=== PATIENT | male | born 2000 | race Caucasian/White ===

== ENCOUNTER 2020-04-01 00:08 | Emergency (ER) | payer OTHER ==
[2020-04-01 00:17] VITALS: BP 140/89
--- NOTE | 2020-04-01 00:17 | ED Physician Documentation ---
History of Present Illness - Stated complaint Stated Complaint: SOA - Chief complaint Chief Complaint: Resp - History obtained from History obtained from: Patient - Additonal information Additional information: The patient is a 20-year-old male who presents with a chief complaint of being concerned that he could possibly have COVID. He reports some stress and anxiety and occasional shortness of breath. He denies fevers, headache, neck pain or rash. Patient reports that he was recently and [place] and potentially could have been exposed to COVID.He denies rashes, Chest pain, syncope or any other concerns. Denies any history of LA or stroke or pulmonary embolism or DVT or pneumothorax.Patient reports she was otherwise healthy and up-to-date on all of his immunizations.Patient denies any lower extremity swelling denies any exogenous steroid use or estrogen use denies any recent periods of stasis or trauma or surgeries or any excessive periods of immobility. Denies any unilateral lower extremity swelling. Review of Systems Constitutional: reports: Reviewed and negative Eyes: reports: Reviewed and negative Ears: reports: Reviewed and negative Nose: reports: Reviewed and negative Throat: reports: Reviewed and negative Cardiac: reports: Reviewed and negative Respiratory: reports: Dyspnea GI: reports: Reviewed and negative : reports: Reviewed and negative Skin: reports: Reviewed and negative Musculoskeletal: reports: Reviewed and negative Neurologic: reports: Reviewed and negative Psychiatric: reports: Reviewed and negative Endocrine: reports: Reviewed and negative Immunocompromised: reports: Reviewed and negative PD PAST MEDICAL HISTORY - Allergies Allergies/Adverse Reactions: Allergies Allergy/AdvReac Type Severity Reaction Status Date / Time No Known Drug Allergies Allergy Verified 04/01/20 00:17 PD ED PE NORMAL - Vitals Vital signs reviewed: Yes - General General: Alert and oriented X 3, No acute distress, Well developed/nourished, Other (Healthy appearing, nontoxic nonseptic appearing 20-year-old male in no apparent distress.) - HEENT HEENT: Atraumatic, PERRL, EOMI, Ears normal, Moist mucous membranes, Pharynx benign, Dentition benign - Neck Neck: Supple, no meningeal sign, No bony TTP, No adenopathy, Thyroid normal, No JVD, No bruit - Cardiac Cardiac: RRR, No murmur, No gallop, No rub, Strong equal pulses - Respiratory Respiratory: No respiratory distress, Clear bilaterally - Abdomen Abdomen: Normal bowel sounds, Soft, Non tender, Non distended, No organomegaly - Male Male : Deferred - Rectal Rectal: Deferred - Back Back: No CVA TTP, No spinal TTP - Derm Derm: Normal color, Warm and dry, No rash - Extremities Extremities: No deformity, No tenderness to palpate, Normal ROM s pain, No edema, No calf tenderness / cord - Neuro Neuro: Alert and oriented X 3, coil winder strap 2-12 intact, No motor deficit, No sensory deficit, Normal speech - Psych Psych: Normal mood, Normal affect Results - Vitals Vitals: Vital Signs - 24 hr 04/01/20 00:14 Temperature 36.8 C Heart Rate 91 Respiratory 18 Rate Blood Pressure 140/89 H O2 Saturation 97 Oxygen O2 Source Room air PD MEDICAL DECISION MAKING - ED course Complexity details: d/w patient ED course: PERC 0. Patient is requesting covid testing. COVID test ordered, completed and sent, patient instructed to please follow up for COVID results. patient agreeable to plan. Departure - Departure Disposition: Home, Self Care Clinical Impression: Shortness of breath Condition: Stable Instructions: ED Dyspnea Shortness of Breath Follow-Up: ELIE Weaver [Provider Group] - Tomorrow Comments: Please call the hospital on Friday to follow up on your results of your COVID-19 test. return to the emergency department with any concerns.
== END 2020-04-01 00:31 | disposition home or self-care (01) ==
LOC: ED 00:08
DX: R06.02 Shortness of breath (principal); Z20.828 Contact with and (suspected) exposure to other viral communicable diseases
CPT/HCPCS: 99283

== ENCOUNTER 2020-04-13 10:58 | Emergency (ER) | payer OTHER ==
--- NOTE | 2020-04-13 11:14 | ED Physician Documentation ---
PD HPI URI - Stated complaint Stated Complaint: LAZARO/COLD SWEATS - Chief complaint Chief Complaint: General - History obtained from History obtained from: Patient - History of Present Illness Timing - onset: How many days ago (2-3) Timing duration: Days (2-3) Timing details: Gradual onset, Still present Associated symptoms: Fever (2 days ago), Chills, Nasal congestion, Dry cough (mild), Chest pain (tightness feeling), Dyspnea (with activity, feeling very dyspneic with just walking around.). No: Sinus pain, Sore throat, NVD, Bilateral edema Contributing factors: No: Sick contact, Travel, Immunocompromised, COPD / asthma Similar symptoms before: Has not had sx before Recently seen: Emergency Dept (seen 2 weeks ago for some malaise and cough and had negative COIVD test at that time. [place] okay in the interval time until the past few days.) Review of Systems Constitutional: reports: Fever (subjective, with measured mild fever 100 2 days ago.), Chills, Myalgias Nose: reports: Congestion. denies: Rhinorrhea / runny nose Throat: denies: Sore throat Cardiac: reports: Chest pain / pressure. denies: Palpitations (noted fast heart rate at times, particular with light activity, and has noted it up to 130 but regular.), Pedal edema, Calf pain Respiratory: reports: Dyspnea, Cough (mild nonproductive). denies: Wheezing GI: denies: Abdominal Pain, Nausea, Vomiting, Diarrhea Musculoskeletal: denies: Neck pain, Back pain Neurologic: reports: Generalized weakness. denies: Near syncope PD PAST MEDICAL HISTORY - Past Medical History Past Medical History: No Cardiovascular: None Respiratory: None Neuro: None Endocrine/Autoimmune: None - Past Surgical History Past Surgical History: No - Present Medications Home Medications: Ambulatory Orders Medication Instructions Recorded Confirmed Colchicine 0.6 mg PO BID #20 capsule 04/13/20 dexAMETHasone [Decadron] 4 mg PO DAILY #7 tablet 04/13/20 - Allergies Allergies/Adverse Reactions: Allergies Allergy/AdvReac Type Severity Reaction Status Date / Time No Known Drug Allergies Allergy Verified 04/13/20 11:07 - Living Situation Living Arrangement: reports: At home - Social History Does the pt smoke?: No Does the pt drink ETOH?: Yes Does the pt have substance abuse?: No Additional Social History: regular but not excess caffeine use - 1-2 coffees daily, and some soda. No energy drinks. - Immunizations Immunizations are current?: Yes - POLST Patient has POLST: No PD ED PE NORMAL - Vitals Vital signs reviewed: Yes - General General: Alert and oriented X 3, No acute distress, Well developed/nourished - HEENT HEENT: Ears normal, Moist mucous membranes, Pharynx benign - Neck Neck: Supple, no meningeal sign, No adenopathy - Cardiac Cardiac: RRR, No murmur, Strong equal pulses, Other (possible mild friction rub with sitting forward) - Respiratory Respiratory: Clear bilaterally - Abdomen Abdomen: Soft, Non tender - Derm Derm: Normal color, Warm and dry, No rash - Extremities Extremities: No deformity, No tenderness to palpate, Normal ROM s pain, No edema, No calf tenderness / cord - Neuro Neuro: Alert and oriented X 3, No motor deficit, Normal speech Results - Vitals Vitals: Vital Signs - 24 hr 04/13/20 04/13/20 11:03 13:21 Temperature 36.4 C L 36.8 C Heart Rate 77 90 Respiratory 16 16 Rate Blood Pressure 122/75 100/68 O2 Saturation 97 100 Oxygen O2 Source Room air - EKG (time done) 12:05 Rate: Rate (enter#) (86) Rhythm: NSR [place]: Normal Intervals: Normal [place] QRS: Normal Ischemia: Normal ST segments, ST elevation c/w repol (or more likely pericarditis, as diffuse distribution. ). No: ST elevation c/w ischemia, ST depression - Labs Labs: Laboratory Tests 04/13/20 04/13/20 04/13/20 11:57 11:57 11:57 WBC 8.0 RBC 5.60 Hgb 15.1 Hct 45.0 MCV 80.4 MCH 27.0 MCHC 33.6 RDW 12.6 Plt Count 205 MPV 9.4 Neut # (Auto) 5.4 Lymph # (Auto) 1.5 [place] # (Auto) 1.0 Eos # (Auto) 0.1 Baso # (Auto) 0.0 Absolute Nucleated RBC 0.00 Nucleated RBC % 0.0 Sodium 135 Potassium 3.9 Chloride 100 L Carbon Dioxide 25 Anion Gap 10.0 BUN 20 Creatinine 0.8 Estimated GFR (MDRD) 122 Glucose 139 H Calcium 10.0 Total Bilirubin 0.5 AST 16 ALT 26 Alkaline Phosphatase 77 Troponin I High Sens 8.4 B-Natriuretic Peptide Total Protein 8.1 Albumin 4.6 Globulin 3.5 Albumin/Globulin Ratio 1.3 Lipase 23 TSH 04/13/20 04/13/20 11:57 11:57 WBC RBC Hgb Hct MCV MCH MCHC RDW Plt Count MPV Neut # (Auto) Lymph # (Auto) [place] # (Auto) Eos # (Auto) Baso # (Auto) Absolute Nucleated RBC Nucleated RBC % Sodium Potassium Chloride Carbon Dioxide Anion Gap BUN Creatinine Estimated GFR (MDRD) Glucose Calcium Total Bilirubin AST ALT Alkaline Phosphatase Troponin I High Sens B-Natriuretic Peptide 16 Total Protein Albumin Globulin Albumin/Globulin Ratio Lipase TSH 2.78 - Rads (name of study) chest xray Radiology: Prelim report reviewed (no acute cardiopulomonary disease. ), See rad report PD MEDICAL DECISION MAKING - ED course Complexity details: reviewed results (His troponin and BNP are normal. Chest x- ray is without any infiltrates. His EKG shows ST elevations that are more consistent with pericarditis than early repolarization. This would fit with his symptoms.), re-evaluated patient, considered differential (Does have symptoms of possible viral illness with malaise dyspnea and feeling of chills and fever. Only mild cough. Main symptoms are chest pressure and shortness of breath. Will check EKG chest x-ray and labs. perhaps some element of anxiety. Consider caffeine contribution to reported fast HR. ), d/w patient Departure - Departure Disposition: 01 Home, Self Care Clinical Impression: Chest discomfort Dyspnea Qualifiers: Dyspnea type: dyspnea on exertion Qualified Code(s): R06.00 - Dyspnea, unspecified Acute pericarditis Qualifiers: Pericarditis type: unspecified type Qualified Code(s): I30.9 - Acute pericarditis, unspecified Condition: Stable Record reviewed to determine appropriate education?: Yes Instructions: ED Chest Pain Pericarditis Follow-Up: Lalo Crews MD [Primary Care Provider] - Prescriptions: Colchicine 0.6 mg PO BID #20 capsule dexAMETHasone [Decadron] 4 mg PO DAILY #7 tablet Comments: AGR consistent with pericarditis which is an inflammation in the sac around the heart. This is treated with anti-inflammatories. See the enclosed instruction sheet. I gave you a work note for the next 5 days off work since you are having enough symptoms with the shortness of breath and chest discomfort. Follow-up with your primary care on Friday, call today for a follow-up appointment. Decadron anti-inflammatory daily for the next week. Colchicine also an anti- inflammatory twice daily for 10 days. Add Tylenol if needed for pains. Light activity is okay. Forms: Activity restrictions Discharge Date/Time: 04/13/20 13:21
--- NOTE | 2020-04-13 11:57 | XRAY Report ---
PROCEDURE: Chest 2 View X-Ray INDICATIONS: Dyspnea, cough TECHNIQUE: 2 view(s) of the chest. COMPARISON: None. FINDINGS: Surgical changes and devices: None. Lungs and pleura: No pleural effusions or pneumothorax. Lungs are clear. Mediastinum: Mediastinal contours are normal. Heart size is normal. Bones and chest wall: No suspicious bony abnormalities. Soft tissues appear unremarkable. IMPRESSION: No acute cardiopulmonary process demonstrated radiographically. Reviewed by: Roland Mattson MD on 04/13/2020 11:55 AM PDT Approved by: Roland Mattson MD on 04/13/2020 11:55 AM PDT Station ID: [id number]
[2020-04-13 12:01] LABS: BASOPHILS % (AUTO) 0.2 %; EOSINOPHILS # (AUTO) 0.1 10^3/uL (0.0-0.7); EOSINOPHILS % (AUTO) 1.7 %; HGB - HEMOGLOBIN 15.1 g/dL (14.0-18.0); LYMPHOCYTES # (AUTO) 1.5 10^3/uL (1.5-3.5); LYMPHOCYTES % (AUTO) 18.2 %; MEAN CORPUSCULAR HGB CONC 33.6 g/dL (32.0-36.0); MEAN CORPUSCULAR VOLUME 80.4 fL (80.0-94.0); MEAN PLATELET VOLUME 9.4 fL (7.4-11.4); MONOCYTES % (AUTO) 12.5 %; NEUTROPHILS # (AUTO) 5.4 10^3/uL (1.5-6.6); NEUTROPHILS % (AUTO) 67.2 %; PLT - PLATELET COUNT 205 10^3/uL (130-450); RED CELL DISTRIBUTION WIDTH 12.6 % (12.0-15.0)
[2020-04-13 12:13] LABS: ALBUMIN 4.6 g/dL (3.2-5.5); ALBUMIN/GLOBULIN RATIO 1.3 (1.0-2.2); BILIRUBIN,TOTAL 0.5 mg/dL (0.2-1.0); CREATININE 0.8 mg/dL (0.6-1.2); TOTAL PROTEIN 8.1 g/dL (6.7-8.2)
[2020-04-13] MEDS ORDERED: DEXAMETHASONE 10 MG/ML VIAL PO STA (12:55)
[2020-04-13] MEDS ORDERED: CHERRY SYRUP 10 ML UDC PO ONE (12:55)
[2020-04-13] MEDS ORDERED: NAPROXEN 250 MG TABLET PO STA (12:55)
[2020-04-13 13:23] VITALS: BP 100/68
== END 2020-04-13 13:21 | disposition home or self-care (01) ==
LOC: ED 10:58
DX: R07.89 Other chest pain (principal); R06.00 Dyspnea, unspecified; I30.9 Acute pericarditis, unspecified; R94.31 Abnormal electrocardiogram [ECG] [EKG]; Z20.828 Contact with and (suspected) exposure to other viral communicable diseases
CPT/HCPCS: 36415; 71046; 83690; 83880; 84484; 87635; 93005; 99284; A9270; 80053; 84443; 85025

== ENCOUNTER 2020-08-05 09:12 | Emergency (ER) | payer OTHER ==
--- NOTE | 2020-08-05 09:24 | ED Physician Documentation ---
PD HPI HEENT - Stated complaint Stated Complaint: LT EAR PX - Chief complaint Chief Complaint: Heent - History obtained from History obtained from: Patient - History of Present Illness Timing - onset: Yesterday Timing - duration: Days (2) Timing - details: Gradual onset, Still present Location: Left ear (ear feels clogged with some pain to it since early yesterday. Tried Cerumenex without improvement.) Improves: No: Medication Associated symptoms: No: Fever, Congestion, Headache, Cough Similar symptoms before: Has not had sx before Recently seen: Not recently seen Review of Systems Constitutional: denies: Fever, Chills Ears: reports: Loss of hearing, Ear pain. denies: Drainage/discharge, Tinnitus/ringing Nose: denies: Rhinorrhea / runny nose, Congestion Throat: denies: Sore throat Respiratory: denies: Cough Skin: denies: Rash, Lesions Neurologic: denies: Headache PD PAST MEDICAL HISTORY - Past Medical History Cardiovascular: None Respiratory: None Neuro: None Endocrine/Autoimmune: None - Past Surgical History Past Surgical History: No - Present Medications Home Medications: Ambulatory Orders Medication Instructions Recorded Confirmed Ciproflox/Dexameth Otic Drops 3 drops LEFTEAR TID 5 Days #1 08/05/20 [Ciprodex] bottle - Allergies Allergies/Adverse Reactions: Allergies Allergy/AdvReac Type Severity Reaction Status Date / Time No Known Drug Allergies Allergy Verified 08/05/20 09:15 - Social History Does the pt smoke?: Yes Smoking Status: Current every day smoker Does the pt drink ETOH?: Yes Does the pt have substance abuse?: No - Immunizations Immunizations are current?: Yes - POLST Patient has POLST: No PD ED PE NORMAL - Vitals Vital signs reviewed: Yes - General General: Alert and oriented X 3, No acute distress, Well developed/nourished - HEENT HEENT: PERRL, EOMI, Moist mucous membranes, Pharynx benign. No: Ears normal (right with some mild wax but normal appearance otherwise. Left with cerumen blocking view of TM, occluding passage. ) - Neck Neck: Supple, no meningeal sign, No adenopathy - Cardiac Cardiac: RRR, No murmur - Respiratory Respiratory: Clear bilaterally Results - Vitals Vitals: Vital Signs - 24 hr 08/05/20 08/05/20 08/05/20 09:16 09:25 10:09 Temperature 36.1 C L 36.3 C L Heart Rate 67 69 66 Respiratory 16 16 16 Rate Blood Pressure 129/79 116/69 124/77 O2 Saturation 99 100 98 Oxygen O2 Source Room air PD MEDICAL DECISION MAKING - ED course Complexity details: considered differential (currette some wax out and then nurse irrigated and got large globs out. Recheck of the TM shows redness of the canal and the outer TM medial to where the wax had been. ), d/w patient Departure - Departure Disposition: 01 Home, Self Care Clinical Impression: Cerumen impaction Qualifiers: Laterality: left Qualified Code(s): H61.22 - Impacted cerumen, left ear Otitis externa Qualifiers: Otitis externa type: other infective Chronicity: acute Laterality: left Qualified Code(s): H60.392 - Other infective otitis externa, left ear Condition: Stable Record reviewed to determine appropriate education?: Yes Instructions: ED Otitis Externa Follow-Up: Lalo Crews MD [Primary Care Provider] - Prescriptions: Ciproflox/Dexameth Otic Drops [Ciprodex] 3 drops LEFTEAR TID 5 Days #1 bottle Comments: The earwax is out of the ear but there does appear significant irritation in the ear canal behind where the earwax was. It does look like some fluid likely had gotten blocked there and caused an irritation and infection. Use the Ciprodex eardrops 3-4 times a day for the next 4 to 5 days. That should clear up the infection. Tylenol or ibuprofen if needed for pains. If not fully improved over the next few days. Discharge Date/Time: 08/05/20 10:19
[2020-08-05 10:10] VITALS: BP 124/77
== END 2020-08-05 10:19 | disposition home or self-care (01) ==
LOC: ED 09:12
DX: H61.22 Impacted cerumen, left ear (principal); H60.392 Other infective otitis externa, left ear; F17.200 Nicotine dependence, unspecified, uncomplicated
CPT/HCPCS: 69209; 99282; 99284